=== PATIENT | male | born 1950 | race Two or more races ===

== ENCOUNTER 2020-01-20 09:09 | Outpatient (AMBR) | payer MEDICARE, MEDICAID, SELFPAY ==
--- NOTE | 2019-12-30 08:10 | PTNOTE_ITS ---
PT OP Initial Eval Patient Information Visit Reasons: post op right knee Medical Diagnosis: Z47.1, Z96.651 Treatment Dx #1: s/p R TKA Start of Care: 12/30/19 Date of Onset: 11/15/19 Initial Assessment Subjective Pt is 69 yr old male s/p R TKA about 6 weeks ago presents to therapy ambulating with SPC and antalgia. Pt reports he can't bend the knee very much and is walking about 1 block and then rests. Pain level is 6-10/10 worse at night. PLOF: pt could ambulate community distances without assistive device. PMH: pre-DM Pt goal: to bend the knee back and walk without pain Objective R knee AROM: Extension: -28 deg Flexion 82 deg Strength MMT Quads: 3-/5 Hamstrings: 3-/5 SLR: 55 deg with 27 deg extensor lag Gait: antalgic with decreased stance time on R LE Assessment Pt presentation consistent with post op R TKA with decreased knee flexion ROM, strength and functional mobility. Pt ambulates lacks 28 deg of extension. Pt can SLR with significant extensor lag. Pt requires skilled therapy to improve ROM strength and gait and has fair/good rehab potential. Eval followed by HEP with materials. Pt may benefit from static progressive ROM device to improve ROM. Short Term and Administrative Professional Goals 1. Ind with HEP 2. Improved knee flexion ROM to 115 deg and extension to full 3. Improved quad and hamstring strength to 4+/5 4. Pt will ambulate with symmetrical gait pattern community distances Treatment Plan 1. Manual therapy 2. Therex 3. Modalities as indicated , estim, moist heat, ice Frequency and Duration 2x a week for 10 weeks Certification Dates: 12/30/19 to 03/30/20 Office Procedures PT Procedures PT Date of Service: 12/30/19 OP PT Eval Mod Complex 30 minutes: Yes Therapeutic Exercise 15 minutes: Yes
--- NOTE | 2020-01-04 15:41 | PT.ODAYNRPT ---
PT Outpatient Daily Note Date of Service: 01/04/20 OP Daily Note Visit Reasons: post op right knee Outpatient Physical Therapy Treatment Date: 01/04/20 Subjective: He bought some ankle weights for HEP into knee extension. Objective: See f/S for therex MT: PPM into knee extension x5' MHP x5' Assessment: Limited knee extension ROM by myofascial tightness with ligamentous end-feel. Plan: Improve knee ROM extension and flexion Length of Time (minutes) of Treatment: 30 Minutes Office Procedures PT Procedures PT Date of Service: 01/04/20 Therapeutic Exercise 30 minutes: Yes PT Procedures PT Date of Service: 12/30/19 OP PT Eval Mod Complex 30 minutes: Yes Therapeutic Exercise 15 minutes: Yes
--- NOTE | 2020-01-06 09:45 | PT.ODAYNRPT ---
PT Outpatient Daily Note Date of Service: 01/06/20 OP Daily Note Visit Reasons: post op right knee Outpatient Physical Therapy Treatment Date: 01/06/20 Subjective: He wants to push to get the knee straight in order to walk Objective: See f/S for therex MT: PPM into knee extension x10' with Gr4++ overpressure MHP x5' Assessment: Limited knee extension ROM by myofascial tightness with ligamentous end-feel. Improved PROM into knee extension today with full overpressure to about -5 deg in supine. Plan: Improve knee ROM extension and flexion Length of Time (minutes) of Treatment: 30 Minutes Office Procedures PT Procedures PT Date of Service: 01/04/20 Therapeutic Exercise 30 minutes: Yes PT Procedures PT Date of Service: 01/06/20 Therapeutic Exercise 15 minutes: Yes Manual Grout Machine Operator 15 minutes: Yes PT Procedures PT Date of Service: 12/30/19 OP PT Eval Mod Complex 30 minutes: Yes Therapeutic Exercise 15 minutes: Yes
--- NOTE | 2020-01-11 10:15 | PT.ODAYNRPT ---
PT Outpatient Daily Note Date of Service: 01/11/20 OP Daily Note Visit Reasons: post op right knee Outpatient Physical Therapy Treatment Date: 01/11/20 Subjective: He wants to push to get the knee straight in order to walk Objective: See f/S for therex MT: PPM into knee extension x10' with Gr4++ overpressure Assessment: Limited knee extension ROM by myofascial tightness with ligamentous end-feel. Improved PROM into knee extension today with full overpressure to about -5 deg in supine. Plan: Improve knee ROM extension and flexion Length of Time (minutes) of Treatment: 35 Minutes Office Procedures PT Procedures PT Date of Service: 01/04/20 Therapeutic Exercise 30 minutes: Yes PT Procedures PT Date of Service: 01/06/20 Therapeutic Exercise 15 minutes: Yes Manual Medical Office Receptionist Assistant 15 minutes: Yes PT Procedures PT Date of Service: 12/30/19 OP PT Eval Mod Complex 30 minutes: Yes Therapeutic Exercise 15 minutes: Yes PT Procedures PT Date of Service: 01/11/20 Therapeutic Exercise 15 minutes: Yes Manual Medical Office Receptionist Assistant 15 minutes: Yes
--- NOTE | 2020-01-13 18:54 | PTNOTE_ITS ---
PT Outpatient Daily Note Date of Service: 01/13/20 OP Daily Note Visit Reasons: post op right knee Outpatient Physical Therapy Treatment Date: 01/13/20 Subjective: He says the knee doesn't want to go straight even though he is doing HEP Objective: See f/S for therex MT: PPM into knee extension x10' with Gr4++ overpressure Assessment: Limited knee extension ROM by myofascial tightness with ligamentous end-feel. Improved PROM into knee extension today with full overpressure to about -7 deg in supine but recoil is significant. Plan: Improve knee ROM extension and flexion Length of Time (minutes) of Treatment: 30 Minutes Office Procedures PT Procedures PT Date of Service: 01/04/20 Therapeutic Exercise 30 minutes: Yes PT Procedures PT Date of Service: 01/06/20 Therapeutic Exercise 15 minutes: Yes Manual Dimension Specification Inspector 15 minutes: Yes PT Procedures PT Date of Service: 01/13/20 Therapeutic Exercise 15 minutes: Yes Manual Dimension Specification Inspector 15 minutes: Yes PT Procedures PT Date of Service: 12/30/19 OP PT Eval Mod Complex 30 minutes: Yes Therapeutic Exercise 15 minutes: Yes PT Procedures PT Date of Service: 01/11/20 Therapeutic Exercise 15 minutes: Yes Manual Dimension Specification Inspector 15 minutes: Yes
--- NOTE | 2020-01-20 19:55 | PTNOTE_ITS ---
PT Outpatient Daily Note Date of Service: 01/20/20 OP Daily Note Visit Reasons: post op right knee Outpatient Physical Therapy Treatment Date: 01/20/20 Subjective: He says the knee doesn't want to go straight even though he is doing HEP Objective: See f/S for therex Assessment: Limited knee extension ROM by myofascial tightness with ligamentous end-feel. Improved PROM into knee extension today with full overpressure to about -7 deg in supine but recoil is significant. Plan: Improve knee ROM extension and flexion Length of Time (minutes) of Treatment: 30 Minutes Office Procedures PT Procedures PT Date of Service: 01/04/20 Therapeutic Exercise 30 minutes: Yes PT Procedures PT Date of Service: 01/06/20 Therapeutic Exercise 15 minutes: Yes Manual Sales Team Recruiter 15 minutes: Yes PT Procedures PT Date of Service: 01/13/20 Therapeutic Exercise 15 minutes: Yes Manual Sales Team Recruiter 15 minutes: Yes PT Procedures PT Date of Service: 01/20/20 Therapeutic Exercise 30 minutes: Yes PT Procedures PT Date of Service: 12/30/19 OP PT Eval Mod Complex 30 minutes: Yes Therapeutic Exercise 15 minutes: Yes PT Procedures PT Date of Service: 01/11/20 Therapeutic Exercise 15 minutes: Yes Manual Sales Team Recruiter 15 minutes: Yes
== END 2020-01-22 23:59 | disposition home or self-care (01) ==
PROVIDERS: PCP Family Medicine; Referring Provider Family Medicine; Visit Provider Orthopaedic Surgery
DX: M25.561 Pain in right knee (principal); R26.2 Difficulty in walking, not elsewhere classified
CPT/HCPCS: 97110; 97140; 97162

== ENCOUNTER 2020-02-08 11:16 | Outpatient (AMBR) | payer MEDICARE, MEDICAID, SELFPAY ==
--- NOTE | 2020-01-25 18:36 | PT.ODAYNRPT ---
PT Outpatient Daily Note Date of Service: 01/25/20 OP Daily Note Visit Reasons: post op right knee Outpatient Physical Therapy Treatment Date: 01/25/20 Subjective: The knee still doesn't want to extend fully Objective: See F/S for therex MT: PPm into knee extension with Gr 4+ overpressure x7' Adjusted knee dynasplint brace into full extension for home use Assessment: Slow progress with knee extension PROM due to recoil. He is ambulating with decreased knee extension. Plan: improve knee ROM Length of Time (minutes) of Treatment: 30 Minutes Office Procedures PT Procedures PT Date of Service: 01/25/20 Therapeutic Exercise 30 minutes: Yes
--- NOTE | 2020-01-27 18:40 | PT.ODS1RPT ---
PT OP Progress/Discharge Note Date of Service: 01/27/20 Progress Note/DC Note Progress Note/Discharge Note: Progress Note Patient Information Visit Reasons: post op right knee Medical Diagnosis: Right TKA Service Continue Service or Discharge: Continue Service Status Subjective: The knee still doesn't want to extend fully but doing HEP Objective: See F/S for therex MT: PPm into knee extension with Gr 4+ overpressure x7' Assessment: Pt has attended the evaluation and 8 Rx sessions with slow progress with knee extension PROM due to myofascial tension and recoil. He is ambulating with decreased knee extension. PROM has improved into extension to about -5 deg. Pt would benefit from continued therapy to improve ROM and knee strength. Plan: Continue visits to improve knee ROM Office Procedures PT Procedures PT Date of Service: 01/25/20 Therapeutic Exercise 30 minutes: Yes PT Procedures PT Date of Service: 01/27/20 Therapeutic Exercise 30 minutes: Yes
--- NOTE | 2020-01-31 18:26 | PT.ODAYNRPT ---
PT Outpatient Daily Note Date of Service: 01/31/20 OP Daily Note Visit Reasons: post op right knee Outpatient Physical Therapy Treatment Date: 01/31/20 Subjective: The knee still doesn't want to extend fully but doing HEP Objective: See F/S for therex Assessment: He is ambulating with decreased knee extension. PROM has improved into extension to about -5 deg. Plan: Continue visits to improve knee ROM Length of Time (minutes) of Treatment: 30 Minutes Office Procedures PT Procedures PT Date of Service: 01/31/20 Therapeutic Exercise 30 minutes: Yes PT Procedures PT Date of Service: 01/25/20 Therapeutic Exercise 30 minutes: Yes PT Procedures PT Date of Service: 01/27/20 Therapeutic Exercise 30 minutes: Yes
--- NOTE | 2020-02-03 13:46 | PT.ODAYNRPT ---
PT Outpatient Daily Note Date of Service: 02/03/20 OP Daily Note Visit Reasons: post op right knee Outpatient Physical Therapy Treatment Date: 02/03/20 Subjective: Pt doesn't think the knee will straighten without CRISTINA. He continues with weights at home and little progress so far. Objective: See F/S for therex Assessment: He is ambulating with decreased knee extension. PROM has improved into extension to about -5 deg with full overpressure but poor carryover visit to visit. Slow progress with ROM goals so far. Pt may benefit from CRISTINA to improve knee extension. Plan: Continue per POC Length of Time (minutes) of Treatment: 30 Minutes Office Procedures PT Procedures PT Date of Service: 01/31/20 Therapeutic Exercise 30 minutes: Yes PT Procedures PT Date of Service: 02/03/20 Therapeutic Exercise 30 minutes: Yes PT Procedures PT Date of Service: 01/25/20 Therapeutic Exercise 30 minutes: Yes PT Procedures PT Date of Service: 01/27/20 Therapeutic Exercise 30 minutes: Yes
--- NOTE | 2020-02-08 19:00 | PT.ODS1RPT ---
PT OP Progress/Discharge Note Date of Service: 02/08/20 Progress Note/DC Note Progress Note/Discharge Note: Progress Note Patient Information Visit Reasons: post op right knee Medical Diagnosis: Right TKA Service Continue Service or Discharge: Continue Service Status Subjective: Pt doesn't think the knee will straighten without CRISTINA. He continues with weights at home and little progress so far. Objective: R knee ROM: Extension: -10 deg Flexion: 95 deg Gait: lacks extension ROM Assessment: Pt has attended /12 visits with limited ROM progress. He is ambulating with decreased knee extension. PROM has improved into extension to about -5 deg with full overpressure but poor carryover visit to visit. Slow progress with ROM goals so far. Pt may benefit from CRISTINA to improve knee extension. Plan: Continue per MD Office Procedures PT Procedures PT Date of Service: 01/31/20 Therapeutic Exercise 30 minutes: Yes PT Procedures PT Date of Service: 02/03/20 Therapeutic Exercise 30 minutes: Yes PT Procedures PT Date of Service: 01/25/20 Therapeutic Exercise 30 minutes: Yes PT Procedures PT Date of Service: 01/27/20 Therapeutic Exercise 30 minutes: Yes PT Procedures PT Date of Service: 02/08/20 Therapeutic Exercise 30 minutes: Yes
== END 2020-02-21 23:59 | disposition home or self-care (01) ==
PROVIDERS: PCP Orthopaedic Surgery; Referring Provider Orthopaedic Surgery; Visit Provider Orthopaedic Surgery
DX: M25.561 Pain in right knee (principal); R73.03 Prediabetes
CPT/HCPCS: 97110

== ENCOUNTER 2020-04-05 13:45 | Outpatient (AMBR) | payer MEDICARE, MEDICAID, SELFPAY ==
--- NOTE | 2020-04-03 18:44 | PT.ODAYNRPT ---
PT Outpatient Daily Note Date of Service: 04/03/20 OP Daily Note Visit Reasons: post op right knee Outpatient Physical Therapy Treatment Date: 04/03/20 Subjective: Pt reports flexion is still limited, gait is improved. Objective: See F/S for therex MT: PPM into knee flexion to end-range tolerance x10' Assessment: Pt had improved knee flexion PROM today with manual therapy to about 100 deg. Pt has good overpressure tolerance into flexion but still limited by myofascial restrictions and pain. Plan: Reassess Length of Time (minutes) of Treatment: 30 Minutes Office Procedures PT Procedures PT Date of Service: 04/03/20 Therapeutic Exercise 15 minutes: Yes Manual Lead Tank Mechanic 15 minutes: Yes
--- NOTE | 2020-04-05 18:35 | PT.ODS1RPT ---
PT OP Progress/Discharge Note Date of Service: 04/05/20 Progress Note/DC Note Progress Note/Discharge Note: DC Note Patient Information Visit Reasons: post op right knee Service Continue Service or Discharge: Discharge Discharge Date: 04/05/20 Status Subjective: Pt reports some improvement since starting therapy but it still is difficult to bend the knee. Objective: R knee AROM: PROM: Flexion: 90 deg 100 deg Extension: -7 deg -3 deg Strength: Quads: 4-/5 HS: 4/5 Assessment: Pt has attended Rx visits with good functional improvement with gait but ROM and quad strength haven't met therapy goals. He is able to ambulate community distances with slightly less knee extension during swing phase. Knee flexion is limited by myofascial restrictions. Plan: Pt is discharged to provider for further workup. Office Procedures PT Procedures PT Date of Service: 04/05/20 Therapeutic Exercise 30 minutes: Yes PT Procedures PT Date of Service: 04/03/20 Therapeutic Exercise 15 minutes: Yes Manual Broadband Technician 15 minutes: Yes
== END 2020-04-23 23:59 | disposition home or self-care (01) ==
PROVIDERS: PCP Family Medicine; Referring Provider Family Medicine; Visit Provider Orthopaedic Surgery
DX: M25.561 Pain in right knee (principal); R26.2 Difficulty in walking, not elsewhere classified
CPT/HCPCS: 97110; 97140

== ENCOUNTER 2020-07-18 11:55 | Outpatient (AMBR) | payer MEDICARE, MEDICAID, SELFPAY ==
--- NOTE | 2020-06-29 14:08 | PTNOTE_ITS ---
PT OP Initial Eval Patient Information Visit Reasons: RIGHT KNEE POST OP Medical Diagnosis: R knee TKA revision Treatment Dx #1: R knee pain Treatment Dx #2: Decreased R knee ROM Start of Care: 06/29/20 Date of Onset: 06/19/20 Initial Assessment Subjective Pt is 70 yr old indonesian speaking male s/p R knee scar excision and polyethylene exchange right total knee arthroplasty about 10 days ago to improve flexion ROM. Pt reports he can't bend the knee very much and is walking about limited distances since sx. PLOF: pt could ambulate community distances without assistive device. PMH: pre-DM Pt goal: to bend the knee back and walk without pain Objective R knee AROM: Extension: -10 deg Flexion 88 deg Strength MMT Quads: 4-/5 Hamstrings: 4-/5 SLR: 55 deg with extensor lag Gait: antalgic with decreased stance time on R LE Assessment Pt presentation consistent with referring dx with decreased knee flexion and extension ROM, strength and functional mobility. Pt ambulates lacks about 10 deg of extension. Pt requires skilled therapy to improve ROM strength and gait and has fair rehab potential. Eval followed by stationary bike x7.' Pt may benefit from static progressive ROM device to improve ROM. Short Term and Manager Animal Goals 1. Ind with HEP 2. Improved knee flexion ROM to 115 deg and extension to full 3. Improved quad and hamstring strength to 4/5 4. Pt will ambulate with symmetrical gait pattern community distances Treatment Plan 90 day POC in order to complete visits. Rx may consist of Therex, Manual therapy, Neuromuscular re-education, Gait training, and therapeutic activities. Modalities as indicated-moist heat packs, ice packs, estim Frequency and Duration 2x a week for 8 weeks Certification Dates: 06/29/20 to 09/28/20 Office Procedures PT Procedures PT Date of Service: 06/29/20 OP PT Eval Mod Complex 30 minutes: Yes
--- NOTE | 2020-07-04 18:03 | PT.ODAYNRPT ---
PT Outpatient Daily Note Date of Service: 07/04/20 OP Daily Note Visit Reasons: RIGHT KNEE POST OP Outpatient Physical Therapy Treatment Date: 07/04/20 Subjective: Same as time of eval, the knee is tight Objective: See F/S for therex MT: PPM into knee flexion with Grade 4+ overpressure x10' Assessment: Pt handles high degree of overpressure with manual therapy into flexion with pain at end-range at about 96 deg. Plan: Improve knee ROM Length of Time (minutes) of Treatment: 30 Minutes Office Procedures PT Procedures PT Date of Service: 06/29/20 OP PT Eval Mod Complex 30 minutes: Yes PT Procedures PT Date of Service: 07/04/20 Therapeutic Exercise 15 minutes: Yes Manual Java Front End Web Developer 15 minutes: Yes
--- NOTE | 2020-07-06 16:27 | PTNOTE_ITS ---
PT Outpatient Daily Note Date of Service: 07/06/20 OP Daily Note Visit Reasons: RIGHT KNEE POST OP Outpatient Physical Therapy Treatment Date: 07/06/20 Subjective: He is trying to stretch and bend the knee at home but the knee is tight Objective: See F/S for therex MT: PPM into knee flexion with Grade 4+ overpressure x10' Assessment: Pt handles high degree of overpressure with manual therapy into flexion with pain at end-range at about 96 deg. Plan: Improve knee ROM Length of Time (minutes) of Treatment: 30 Minutes Office Procedures PT Procedures PT Date of Service: 07/06/20 Therapeutic Exercise 15 minutes: Yes Manual Water Tanker Driver 15 minutes: Yes PT Procedures PT Date of Service: 06/29/20 OP PT Eval Mod Complex 30 minutes: Yes PT Procedures PT Date of Service: 07/04/20 Therapeutic Exercise 15 minutes: Yes Manual Water Tanker Driver 15 minutes: Yes
--- NOTE | 2020-07-11 18:32 | PT.ODAYNRPT ---
PT Outpatient Daily Note Date of Service: 07/11/20 OP Daily Note Visit Reasons: RIGHT KNEE POST OP Outpatient Physical Therapy Treatment Date: 07/11/20 Subjective: He is trying to stretch and bend the knee at home but the knee is tight Objective: See F/S for therex MT: PPM into knee flexion with Grade 4+ overpressure x10' Assessment: Pt handles high degree of overpressure with manual therapy into flexion with pain at end-range at about 96 deg. Plan: Improve knee ROM Length of Time (minutes) of Treatment: 30 Minutes Office Procedures PT Procedures PT Date of Service: 07/06/20 Therapeutic Exercise 15 minutes: Yes Manual Screen Printing Machine Operator Helper 15 minutes: Yes PT Procedures PT Date of Service: 06/29/20 OP PT Eval Mod Complex 30 minutes: Yes PT Procedures PT Date of Service: 07/04/20 Therapeutic Exercise 15 minutes: Yes Manual Screen Printing Machine Operator Helper 15 minutes: Yes PT Procedures PT Date of Service: 07/11/20 Therapeutic Exercise 15 minutes: Yes Manual Screen Printing Machine Operator Helper 15 minutes: Yes
--- NOTE | 2020-07-13 16:20 | PT.ODAYNRPT ---
PT Outpatient Daily Note Date of Service: 07/13/20 OP Daily Note Visit Reasons: RIGHT KNEE POST OP Outpatient Physical Therapy Treatment Date: 07/13/20 Subjective: He is trying to stretch and bend the knee at home but the knee is tight Objective: See F/S for therex MT: PPM into knee flexion with Grade 4+ overpressure x10' Assessment: Pt handles high degree of overpressure with manual therapy into flexion with pain at end-range at about 100 deg. Plan: Improve knee ROM Length of Time (minutes) of Treatment: 30 Minutes Office Procedures PT Procedures PT Date of Service: 07/06/20 Therapeutic Exercise 15 minutes: Yes Manual Human Resources Operations Director 15 minutes: Yes PT Procedures PT Date of Service: 06/29/20 OP PT Eval Mod Complex 30 minutes: Yes PT Procedures PT Date of Service: 07/04/20 Therapeutic Exercise 15 minutes: Yes Manual Human Resources Operations Director 15 minutes: Yes PT Procedures PT Date of Service: 07/11/20 Therapeutic Exercise 15 minutes: Yes Manual Human Resources Operations Director 15 minutes: Yes PT Procedures PT Date of Service: 07/13/20 Therapeutic Exercise 15 minutes: Yes Manual Human Resources Operations Director 15 minutes: Yes
--- NOTE | 2020-07-18 18:06 | PT.ODAYNRPT ---
PT Outpatient Daily Note Date of Service: 07/18/20 OP Daily Note Visit Reasons: RIGHT KNEE POST OP Outpatient Physical Therapy Treatment Date: 07/18/20 Subjective: He is trying to stretch and bend the knee at home but the knee is tight Objective: See F/S for therex MT: STM knee incision scar x7' Assessment: Slow progress with flexion ROM goals due to myofascial restrictions. Pt is also lacking extension ROM. Plan: Improve knee ROM Length of Time (minutes) of Treatment: 30 Minutes Office Procedures PT Procedures PT Date of Service: 07/06/20 Therapeutic Exercise 15 minutes: Yes Manual Roller Machine Operator 15 minutes: Yes PT Procedures PT Date of Service: 07/18/20 Therapeutic Exercise 30 minutes: Yes PT Procedures PT Date of Service: 06/29/20 OP PT Eval Mod Complex 30 minutes: Yes PT Procedures PT Date of Service: 07/04/20 Therapeutic Exercise 15 minutes: Yes Manual Roller Machine Operator 15 minutes: Yes PT Procedures PT Date of Service: 07/11/20 Therapeutic Exercise 15 minutes: Yes Manual Roller Machine Operator 15 minutes: Yes PT Procedures PT Date of Service: 07/13/20 Therapeutic Exercise 15 minutes: Yes Manual Roller Machine Operator 15 minutes: Yes
== END 2020-07-21 23:59 | disposition home or self-care (01) ==
PROVIDERS: PCP Family Medicine; Referring Provider Family Medicine; Visit Provider Orthopaedic Surgery
DX: Z01.818 Encounter for other preprocedural examination (principal); M25.561 Pain in right knee; R26.2 Difficulty in walking, not elsewhere classified; R73.03 Prediabetes
CPT/HCPCS: 97110; 97140; 97162

== ENCOUNTER 2020-07-31 10:22 | Outpatient (AMBR) | payer MEDICARE, MEDICAID, SELFPAY ==
--- NOTE | 2020-07-25 19:09 | PT.ODAYNRPT ---
PT Outpatient Daily Note Date of Service: 07/25/20 OP Daily Note Visit Reasons: RIGHT KNEE POST OP Outpatient Physical Therapy Treatment Date: 07/25/20 Subjective: Pt points to the R ITB distally as site of pain and that the knee joint is not hurting anymore Objective: SEe f/S for therex Assessment: Pain is mostly from distal ITB which is tight with knee flexion. Plan: Improve knee ROM into flexion Length of Time (minutes) of Treatment: 30 Minutes Office Procedures PT Procedures PT Date of Service: 07/25/20 Therapeutic Exercise 15 minutes: Yes Manual Liquid Floor And Wall Applier 15 minutes: Yes
--- NOTE | 2020-07-27 18:34 | PT.ODAYNRPT ---
PT Outpatient Daily Note Date of Service: 07/27/20 OP Daily Note Visit Reasons: RIGHT KNEE POST OP Outpatient Physical Therapy Treatment Date: 07/27/20 Subjective: Pt points to the R ITB distally as site of pain and that the knee joint is not hurting anymore Objective: SEe f/S for therex MT: STM R ITB x10' with Graston Assessment: Pain is mostly from distal ITB which is tight with knee flexion and limits ROM Plan: Improve knee ROM into flexion Length of Time (minutes) of Treatment: 30 Minutes Office Procedures PT Procedures PT Date of Service: 07/25/20 Therapeutic Exercise 15 minutes: Yes Manual Transportation Director 15 minutes: Yes PT Procedures PT Date of Service: 07/27/20 Therapeutic Exercise 15 minutes: Yes Manual Transportation Director 15 minutes: Yes
--- NOTE | 2020-07-31 15:48 | PTNOTE_ITS ---
PT OP Progress/Discharge Note Date of Service: 07/31/20 Progress Note/DC Note Progress Note/Discharge Note: DC Note Patient Information Visit Reasons: RIGHT KNEE POST OP Medical Diagnosis: Right TKA Service Continue Service or Discharge: Discharge Discharge Date: 07/31/20 Status Subjective: Pt points to the R ITB distally as site of pain and that the knee joint is not hurting anymore Objective: SEe f/S for therex MT: STM R ITB x10' with Graston R knee AROM: Strength: Flexion: 90 deg 4/5 Extension: -3 deg 4/5 Gait: decreased knee extension ROm with gait. Assessment: Pt has attended 12/03 Rx visits with limited progress with goals due to pain that is mostly from distal ITB which is tight with knee flexion and limits ROM. Pt has good function and strength within limited ROM up to about 100 deg flexion but once R ITB is put on tension it limits flexion. Gait is still unsymmetrical. Plan: Continue with visits until 12 to improve knee ROM into flexion Office Procedures PT Procedures PT Date of Service: 07/25/20 Therapeutic Exercise 15 minutes: Yes Manual Center Customer Service Associate 15 minutes: Yes PT Procedures PT Date of Service: 07/27/20 Therapeutic Exercise 15 minutes: Yes Manual Center Customer Service Associate 15 minutes: Yes PT Procedures PT Date of Service: 07/31/20 Therapeutic Exercise 15 minutes: Yes Manual Center Customer Service Associate 15 minutes: Yes
== END 2020-08-21 23:59 | disposition home or self-care (01) ==
PROVIDERS: PCP Family Medicine; Referring Provider Family Medicine; Visit Provider Orthopaedic Surgery
DX: Z98.890 Other specified postprocedural states (principal); M25.561 Pain in right knee; R73.03 Prediabetes; R26.2 Difficulty in walking, not elsewhere classified
CPT/HCPCS: 97110; 97140

== ENCOUNTER 2020-09-15 08:24 | Outpatient (AMBR) | payer MEDICARE, MEDICAID, SELFPAY ==
--- NOTE | 2020-09-05 16:21 | PT.OIERPT ---
PT OP Initial Eval Patient Information Visit Reasons: right knee joint Medical Diagnosis: Z01. [id number] Treatment Dx #1: Right Knee Mobility Deficits Treatment Dx #2: Right Knee Weakness Start of Care: 09/05/20 Date of Onset: 09/04/20 Initial Assessment Subjective Pt is 70 y/o male right knee CRISTINA. Pt stated that he has a previous manipulation earlier this year but was still unable to bend his knee. Pt has limitation with self care activities, putting on his socks, chores, prolonged walking, standing, work duties, squatting, and performing ADLs. Objective Right Knee AROM: -9 deg to 93 deg Right Knee PROM: -7 deg to 100 deg with pain Right Knee MMTs Quads: 3+/5 Hs: 3+/5 Right Hip MMTs Glute Med: 3/5 Glute Max: 3/5 SLS: NT Assessment Pt demonstrate right knee mobility deficits s/p knee CRISTINA leading to decline function. Pt will benefit from physical therapy to increase ROM, strength, and work on LE stability Short Term and Stair Builder Goals 1) Increase right knee flexion AROM to 110 deg in 4 wks to be able to perform squatting activities 2) Increase right knee MMTs grossly to 4+/5 in 4 wks to be able to perform chores 3) Increase right hip MMTs grossly to 4-/5 in 4 wks to be able to perform yardwork 4) Increase SLS to 15 sec in 4 wks to be able to negotiate uneven surfaces 5) Indep with HEP Treatment Plan 1) Manual Therapy 2) Therapeutic Activities 3) Therapeutic Exercises 4) Modalities (ice, heat) 5) Balance Training Frequency and Duration 3 x wk for 4 wks Certification Dates: 09/05/20 to 12/06/20 Office Procedures PT Procedures PT Date of Service: 09/05/20 OP PT Re-evaluation: Yes
--- NOTE | 2020-09-06 11:26 | PT.ODAYNRPT ---
PT Outpatient Daily Note Date of Service: 09/06/20 OP Daily Note Visit Reasons: right knee joint Outpatient Physical Therapy Treatment Date: 09/06/20 Subjective: Pt mention that his knee is sore and ache more due to medicine wearing off. Pt started light HEP at home. Objective: right knee flexion AROM: 104 deg Assessment: noted increase tension at the patella tendon STM help decrease tension and able to tolerate passive stretching allowing more knee flexion AROM Plan: Continue with PT Length of Time (minutes) of Treatment: 30 Minutes Office Procedures PT Procedures PT Date of Service: 09/05/20 OP PT Re-evaluation: Yes PT Procedures PT Date of Service: 09/06/20 Therapeutic Exercise 15 minutes: Yes Manual Station Air Traffic Control Specialist 15 minutes: Yes
--- NOTE | 2020-09-08 12:45 | PTNOTE_ITS ---
PT Outpatient Daily Note Date of Service: 09/08/20 OP Daily Note Visit Reasons: right knee joint Outpatient Physical Therapy Treatment Date: 09/08/20 Subjective: Pt's knee feels much better. Pt feels that the STM last time really help as well as the stretches. Pt is a little more sore than usual the day after therapy but it feels much better today Objective: Right knee flexion ROM: 106/110 deg Assessment: Pt continues to improve with knee flexion ROM and tolerate more of the supine knee flexion stretches with less guarding Plan: Continue with PT Length of Time (minutes) of Treatment: 30 Minutes Office Procedures PT Procedures PT Date of Service: 09/05/20 OP PT Re-evaluation: Yes PT Procedures PT Date of Service: 09/06/20 Therapeutic Exercise 15 minutes: Yes Manual Concrete Block Molder 15 minutes: Yes PT Procedures PT Date of Service: 09/08/20 Therapeutic Exercise 15 minutes: Yes Manual Concrete Block Molder 15 minutes: Yes
--- NOTE | 2020-09-11 11:56 | PT.ODAYNRPT ---
PT Outpatient Daily Note Date of Service: 09/11/20 OP Daily Note Visit Reasons: right knee joint Outpatient Physical Therapy Treatment Date: 09/11/20 Subjective: Pt feels that he is not progressing. Pt goes home and it becomes stiff again. Pt is getting concern and is frustrated. Objective: Right Knee AROM 108//110 deg Assessment: Pt educated that it's common to see knee CRISTINA to lose a few degrees due to pain and muscles soreness after therapy or with activities at home. Pt gave verbal understanding. Pt's ROM looks the same from previous session Plan: Continue with PT Length of Time (minutes) of Treatment: 30 Minutes Office Procedures PT Procedures PT Date of Service: 09/11/20 Therapeutic Exercise 15 minutes: Yes Manual Benzene Still Utility Operator 15 minutes: Yes PT Procedures PT Date of Service: 09/05/20 OP PT Re-evaluation: Yes PT Procedures PT Date of Service: 09/06/20 Therapeutic Exercise 15 minutes: Yes Manual Benzene Still Utility Operator 15 minutes: Yes PT Procedures PT Date of Service: 09/08/20 Therapeutic Exercise 15 minutes: Yes Manual Benzene Still Utility Operator 15 minutes: Yes
--- NOTE | 2020-09-13 08:22 | PTNOTE_ITS ---
PT Outpatient Daily Note Date of Service: 09/13/20 OP Daily Note Visit Reasons: right knee joint Outpatient Physical Therapy Treatment Date: 09/13/20 Subjective: Pt feels that knee regress. Pt's knee feels good everytime after therapy but it gets tight again. Pt also concerns about the knee pain which feels the same as before the knee replacement Objective: Please see flow chart for list of ther ex performed Assessment: maintain same PROM knee flexion no change or regression noted Plan: Continue with PT Length of Time (minutes) of Treatment: 30 Minutes Office Procedures PT Procedures PT Date of Service: 09/11/20 Therapeutic Exercise 15 minutes: Yes Manual Woodenware Assembler 15 minutes: Yes PT Procedures PT Date of Service: 09/13/20 Therapeutic Exercise 15 minutes: Yes Manual Woodenware Assembler 15 minutes: Yes PT Procedures PT Date of Service: 09/05/20 OP PT Re-evaluation: Yes PT Procedures PT Date of Service: 09/06/20 Therapeutic Exercise 15 minutes: Yes Manual Woodenware Assembler 15 minutes: Yes PT Procedures PT Date of Service: 09/08/20 Therapeutic Exercise 15 minutes: Yes Manual Woodenware Assembler 15 minutes: Yes
--- NOTE | 2020-09-15 09:04 | PTNOTE_ITS ---
PT Outpatient Daily Note Date of Service: 09/15/20 OP Daily Note Visit Reasons: right knee joint Outpatient Physical Therapy Treatment Date: 09/15/20 Subjective: Pt's surgeon satisfy so far. Pt notice he's doing much better. Objective: Right Knee PROM/AROM: 106 deg//100 deg Assessment: Pt demonstrate slight regression due to pain and continue restriction from rectus femoris Plan: Continue with PT Length of Time (minutes) of Treatment: 30 Minutes Office Procedures PT Procedures PT Date of Service: 09/11/20 Therapeutic Exercise 15 minutes: Yes Manual Cd Reactor Operator Head 15 minutes: Yes PT Procedures PT Date of Service: 09/13/20 Therapeutic Exercise 15 minutes: Yes Manual Cd Reactor Operator Head 15 minutes: Yes PT Procedures PT Date of Service: 09/05/20 OP PT Re-evaluation: Yes PT Procedures PT Date of Service: 09/06/20 Therapeutic Exercise 15 minutes: Yes Manual Cd Reactor Operator Head 15 minutes: Yes PT Procedures PT Date of Service: 09/08/20 Therapeutic Exercise 15 minutes: Yes Manual Cd Reactor Operator Head 15 minutes: Yes PT Procedures PT Date of Service: 09/15/20 Therapeutic Exercise 15 minutes: Yes Manual Cd Reactor Operator Head 15 minutes: Yes
== END 2020-09-20 23:59 | disposition home or self-care (01) ==
PROVIDERS: PCP Orthopaedic Surgery; Referring Provider Orthopaedic Surgery; Visit Provider Orthopaedic Surgery
DX: Z01.818 Encounter for other preprocedural examination (principal); M25.561 Pain in right knee; R53.1 Weakness; R26.2 Difficulty in walking, not elsewhere classified
CPT/HCPCS: 97110; 97140; 97164

== ENCOUNTER 2020-09-28 14:38 | Outpatient (AMBR) | payer MEDICARE, MEDICAID, SELFPAY ==
--- NOTE | 2020-09-22 15:54 | PT.ODAYNRPT ---
PT Outpatient Daily Note Date of Service: 09/22/20 OP Daily Note Visit Reasons: right knee joint Outpatient Physical Therapy Treatment Date: 09/22/20 Subjective: Pt mention that his knee is better. Pt has been able to put on his socks. Objective: Right Knee Flexion AROM: 111 deg Assessment: Pt continues to improve with knee AROM flexion with less regression Plan: Continue with PT Length of Time (minutes) of Treatment: 30 Minutes Office Procedures PT Procedures PT Date of Service: 09/22/20 Therapeutic Exercise 15 minutes: Yes Manual Inventory Analyst 15 minutes: Yes
--- NOTE | 2020-09-26 15:22 | PT.ODAYNRPT ---
PT Outpatient Daily Note Date of Service: 09/26/20 OP Daily Note Visit Reasons: right knee joint Outpatient Physical Therapy Treatment Date: 09/26/20 Subjective: Pt's knee feel so so still morning stiffness Objective: Please see flow chart for list of ther ex performed Assessment: tolerate exercises maintain AROM of 108 deg from previous session. Plan: Continue with PT Length of Time (minutes) of Treatment: 30 Minutes Office Procedures PT Procedures PT Date of Service: 09/22/20 Therapeutic Exercise 15 minutes: Yes Manual Microsoft Exchange Administrator 15 minutes: Yes PT Procedures PT Date of Service: 09/26/20 Therapeutic Exercise 15 minutes: Yes Manual Microsoft Exchange Administrator 15 minutes: Yes
--- NOTE | 2020-09-28 15:35 | PT.ODAYNRPT ---
PT Outpatient Daily Note Date of Service: 09/28/20 OP Daily Note Visit Reasons: right knee joint Outpatient Physical Therapy Treatment Date: 09/28/20 Subjective: Pt's knee is so so. Pt feels more tightness today due to soreness from previous session Objective: Please see flow chart for list of ther ex performed Assessment: tolerate exercises with minimal pain Plan: Continue with PT Length of Time (minutes) of Treatment: 30 Minutes Office Procedures PT Procedures PT Date of Service: 09/22/20 Therapeutic Exercise 15 minutes: Yes Manual Contract Coordinator 15 minutes: Yes PT Procedures PT Date of Service: 09/26/20 Therapeutic Exercise 15 minutes: Yes Manual Contract Coordinator 15 minutes: Yes PT Procedures PT Date of Service: 09/28/20 Therapeutic Exercise 15 minutes: Yes Manual Contract Coordinator 15 minutes: Yes
--- NOTE | 2020-10-19 09:19 | PT.ODS1RPT ---
PT OP Progress/Discharge Note Date of Service: 10/19/20 Progress Note/DC Note Progress Note/Discharge Note: DC Note Patient Information Visit Reasons: right knee joint Service Continue Service or Discharge: Discharge Discharge Date: 10/19/20 Status Assessment: Pt has been seen for 9 visits (eval + 8 visits). Pt was last treated on 09/28/20 and asked to be d/c from physical therapy per doctor's order. Pt met most goals set in therapy, thank you for your referrals Office Procedures PT Procedures PT Date of Service: 09/22/20 Therapeutic Exercise 15 minutes: Yes Manual Paperboard Box Maker 15 minutes: Yes PT Procedures PT Date of Service: 09/26/20 Therapeutic Exercise 15 minutes: Yes Manual Paperboard Box Maker 15 minutes: Yes PT Procedures PT Date of Service: 09/28/20 Therapeutic Exercise 15 minutes: Yes Manual Paperboard Box Maker 15 minutes: Yes
== END 2020-10-21 23:59 | disposition home or self-care (01) ==
PROVIDERS: PCP Orthopaedic Surgery; Referring Provider Orthopaedic Surgery; Visit Provider Orthopaedic Surgery
DX: Z01.818 Encounter for other preprocedural examination (principal); M25.561 Pain in right knee; R53.1 Weakness; R26.2 Difficulty in walking, not elsewhere classified
CPT/HCPCS: 97110; 97140

== ENCOUNTER → 2024-06-03 | Outpatient (CLI) | payer MEDICARE, MEDICAID, SELFPAY ==
--- NOTE | 2024-06-03 | XR_ITS ---
Examination: PA lateral chest 2 views Technique: Upright PA lateral chest 2 views Exam date and time: June 03, 2024 at 0737 hrs. Indications: COPD asthma history Findings: Normal heart size. Lungs are clear. Osseous structures are intact. Impression: No active disease.
[2024-06-03 09:11] LABS: Free T4 (Free Thyroxine) 0.82 ng/dL (0.89-1.76); Thyroid Stimulating Hormone 3.92 uIU/mL (0.55-4.78)
[2024-06-03 09:25] LABS: Cardiac Risk Estimate 2.7 RATIO (4.0-6.7); Cholesterol 119 mg/dL (132-200); HDL Cholesterol 44 mg/dL (40-60); LDL Cholesterol,Calculated 51 mg/dL (0-130); Triglycerides 120 mg/dL (30-150)
== END | disposition home or self-care (01) ==
LOC: CDIM 07:22 → COPL 07:46
PROVIDERS: PCP Physician Assistant; Referring Provider Physician Assistant; Visit Provider Physician Assistant
DX: J44.89 Other specified chronic obstructive pulmonary disease (principal); E03.8 Other specified hypothyroidism; E78.2 Mixed hyperlipidemia
CPT/HCPCS: 36415; 71046; 80061; 84439; 84443

== ENCOUNTER → 2024-06-23 | Outpatient (CLI) | payer MEDICARE, MEDICAID, SELFPAY ==
[2024-06-23 15:54] LABS: Prostate Specific Antigen 1.72 ng/mL (0-4.00)
== END | disposition home or self-care (01) ==
LOC: COPL 14:49
PROVIDERS: PCP Physician Assistant; Referring Provider Urology; Visit Provider Urology
DX: N40.1 Benign prostatic hyperplasia with lower urinary tract symptoms (principal)
CPT/HCPCS: 36415; 84153

== ENCOUNTER → 2024-06-29 | Outpatient (BNVA) | payer MEDICARE, MEDICAID, SELFPAY | END | disposition home or self-care (01) | PROVIDERS: PCP Family Medicine; Referring Provider Family Medicine; Visit Provider Urology | DX: N40.1 Benign prostatic hyperplasia with lower urinary tract symptoms (principal); N13.8 Other obstructive and reflux uropathy; E11.9 Type 2 diabetes mellitus without complications; E66.9 Obesity, unspecified; E78.00 Pure hypercholesterolemia, unspecified; K21.9 Gastro-esophageal reflux disease without esophagitis | CPT/HCPCS: 81003; 99212; G0463 ==

== ENCOUNTER → 2024-09-13 | Outpatient (CLI) | payer MEDICARE, MEDICAID, SELFPAY ==
[2024-09-13 09:37] LABS: Basophils # (Auto) 0.1 Thou/mm3 (0.0-0.2); Basophils % (Auto) 1 % (0-2.5); Eosinophils # (Auto) 0.2 Thou/mm3 (0.0-0.5); Eosinophils % (Auto) 2 % (0-10); Hematocrit 46.9 % (41.0-53.0); Hemoglobin 15.8 g/dL (13.5-16.0); Immature Granulocytes % (Auto) 0 % (0-0); Immature Granulocytes Auto 0.03 Thou/mm3 (0.00-0.00); Lymphocytes # (Auto) 3.1 Thou/mm3 (1.0-4.8); Lymphocytes % (Auto) 30 % (10-50); Mean Corpuscular HGB Conc 33.7 g/dl (31.0-37.0); Mean Corpuscular Hemoglobin 29.3 pg (25.0-35.0); Mean Corpuscular Volume 87 fL (80-100); Monocytes # (Auto) 0.9 Thou/mm3 (0.0-0.8); Monocytes % (Auto) 9 % (0-12); Neutrophils # (Auto) 5.9 Thou/mm3 (1.8-7.7); Neutrophils % (Auto) 58 % (37-80); Nucleated Red Blood Cell % 0 /100 WBC (0); Platelet Count 235 Thou/mm3 (140-440); RDW Standard Deviation 46.2 fL (35.1-43.9); White Blood Count 10.1 Thou/mm3 (3.8-10.6)
[2024-09-13 09:53] LABS: Alanine Aminotransferase 78 U/L (10-49); Albumin, Serum 4.2 gm/dL (3.4-4.8); Albumin/Globulin Ratio 1.8 (1.2-2.2); Alkaline Phosphatase 56 U/L (46-116); Anion Gap 9 (7-16); Aspartate Amino Transferase 44 U/L (0-34); BUN/Creatinine Ratio 23 Ratio (12-20); Bilirubin,Total 1.3 mg/dL (0.3-1.2); Blood Urea Nitrogen 16 mg/dL (9-23); Calcium 9.2 mg/dL (8.3-10.6); Calcium (Corrected) 9.2 mg/dL (8.5-10.1); Carbon Dioxide 29.6 mMol/L (20.0-31.0); Chloride 103 mMol/L (98-107); Creatinine (Component) 0.7 mg/dL (0.6-1.3); Globulin 2.4 gm/dL (2.3-3.5); Glucose 107 mg/dL (74-106); Osmolality,Calculated 284 (275-295); Potassium 4.4 mMol/L (3.4-5.1); Sodium 142 mMol/L (136-145); Thyroid Stimulating Hormone 3.43 uIU/mL (0.55-4.78); Total Protein 6.6 gm/dL (5.7-8.2); eGFR > 60 See Note
[2024-09-13 10:07] LABS: Glucose Estimated Average 140 mg/dL (80-131); Hemoglobin A1C 6.5 % Hgb (4.8-6.0)
[2024-09-13 10:15] LABS: Creatinine MALB Rnd Ur 100 mg/dL (30-125); Microalbumin Creat Ratio 4 mg/gCrea (<30); Microalbumin, Random Urine 4 mg/L (0-300)
== END | disposition home or self-care (01) ==
LOC: COPL 08:09
PROVIDERS: PCP Physician Assistant; Referring Provider Physician Assistant; Visit Provider Physician Assistant
DX: E03.8 Other specified hypothyroidism (principal); E11.65 Type 2 diabetes mellitus with hyperglycemia
CPT/HCPCS: 36415; 80053; 82043; 82570; 83036; 84439; 84443; 85025

== ENCOUNTER → 2024-11-10 | Outpatient (CLI) | payer MEDICARE, MEDICAID, SELFPAY ==
[2024-11-15 07:03] LABS: Fecal Globin Result NOT DETECTED (NOT DETECTED)
== END | disposition home or self-care (01) ==
LOC: SLDO 16:08
PROVIDERS: PCP Physician Assistant; Referring Provider Physician Assistant; Visit Provider Physician Assistant
DX: Z12.11 Encounter for screening for malignant neoplasm of colon (principal)
CPT/HCPCS: 82274; G0328

== ENCOUNTER → 2024-12-16 | Outpatient (CLI) | payer MEDICARE, MEDICAID, SELFPAY ==
[2024-12-16 09:20] LABS: Alanine Aminotransferase 63 U/L (10-49); Albumin, Serum 4.3 gm/dL (3.4-4.8); Alkaline Phosphatase 69 U/L (46-116); Aspartate Amino Transferase 36 U/L (0-34); Bilirubin,Direct 0.3 mg/dL (0.0-0.3); Bilirubin,Total 1.0 mg/dL (0.3-1.2); Free T4 (Free Thyroxine) 0.78 ng/dL (0.89-1.76); Thyroid Stimulating Hormone 3.18 uIU/mL (0.55-4.78); Total Protein 7.1 gm/dL (5.7-8.2)
[2024-12-16 09:44] LABS: Cardiac Risk Estimate 2.5 RATIO (4.0-6.7); Cholesterol 94 mg/dL (132-200); HDL Cholesterol 37 mg/dL (40-60); LDL Cholesterol,Calculated 36 mg/dL (0-130); Triglycerides 106 mg/dL (30-150)
== END | disposition home or self-care (01) ==
LOC: COPL 06:49
PROVIDERS: PCP Physician Assistant; Referring Provider Physician Assistant; Visit Provider Physician Assistant
DX: E03.8 Other specified hypothyroidism (principal); E78.2 Mixed hyperlipidemia; R74.8 Abnormal levels of other serum enzymes
CPT/HCPCS: 36415; 80061; 80076; 84439; 84443